=== PATIENT | male | born 1985 | race Caucasian/White ===

== ENCOUNTER 2023-12-10 23:47 | Emergency (ER) | payer MEDICAID, SELFPAY ==
[2023-12-10 23:54] VITALS: BP 142/98; PULSE 107; RESP 22; TEMP 36.4; O2SAT 98; BMI 27.8
[2023-12-11 00:05] LABS: Coronavirus 19, PCR Not Detected (NotDetected); Influenza A, PCR Not Detected (NotDetected); Influenza B, PCR Not Detected (NotDetected)
--- NOTE | 2023-12-11 00:14 | ED_ITS ---
Discharge Plan Disposition Patient Disposition: Home, Self-Care Prescriptions Prescriptions: New ondansetron HCl 4 mg tablet 4 mg PO Q8H PRN (Reason: nausea and vomiting) 5 Days Qty: 30 0RF benzonatate 100 mg capsule 100 mg PO Q6H PRN (Reason: cough) Qty: 30 0RF Referrals Follow up/Referrals: Provider,Referral, MD [Primary Care Provider] - See instructions Activity Restrictions/Add. Instructions Additional Instructions/Restrictions: Please take Tylenol ibuprofen and cough and cold medication [id number] as needed for symptoms. Take Zofran as needed for nausea and vomiting. Please take Tessalon Perles as needed for cough. Clinical Impressions Clinical Impression: Upper respiratory infection Qualifiers: URI type: unspecified URI Qualified Code(s): J06.9 - Acute upper respiratory infection, unspecified Cough Qualifiers: Cough type: acute Qualified Code(s): R05.1 - Acute cough Instructions Patient Instructions: DI for Acute Bronchitis Discharge ED Provider: Warner Boyer General Adult HPI General Chief complaint: Upper Respiratory Infection Stated complaint: Fever, Cough, Congestion Time Seen by Provider: 12/11/23 00:02 Mode of Arrival: Family Vehicle Source of Information: Patient Limitations: No Limitations Description of Symptoms (Recalled from ER Triage Doc. by RN): 38 YO PRESENTS WITH CC OF NON-PROD COUGH, FEVER SINCE LAST NIGHT, SORE THROAT; PATIENT DENIES EXPOSURE TO COVID/FLU/STREP; 1 EPISODE OF VOMITING, SOME MILD DIARRHEA History of Present Illness HPI narrative: 38-year-old male previously healthy presents with 1 day of upper respiratory infection. He reports cough, nonproductive, subjective fever and chills at home, for the last 24 hours. He smokes cigarettes. He denies any other past medical history. Denies significant shortness of breath or chest pain. Reports 1 episode of vomiting. Related Data Previous Rx's Medication Instructions Recorded benzonatate 100 mg capsule 100 mg PO Q6H PRN cough #30 caps 12/11/23 ondansetron HCl 4 mg tablet 4 mg PO Q8H PRN nausea and 12/11/23 vomiting 5 days #30 tabs Allergies Allergy/AdvReac Type Severity Reaction Status Date / Time No Known Allergies Allergy Verified 12/11/23 00:02 [facility] Disclaimer: The information contained in this section may have been updated after the patient was seen, as this information can be updated by other users. Social History Smoking Status: Unknown if ever smoked alcohol intake: never current occupational status: employed and other Travel in the last 8 weeks: None ROS Obtained: Yes All systems reviewed & no additional complaints except as documented Physical Exam General General appearance: alert and in no apparent distress Head Head exam: atraumatic and normocephalic Eye Eye exam: Present normal appearance, PERRL and EOMI ENT ENT exam: Present normal oropharynx and normal external ear exam Neck Neck exam: Present normal inspection and full ROM Chest Chest inspection: Present normal inspection and symmetric chest wall rise; Absent tenderness Respiratory Respiratory exam: Present normal lung sounds bilaterally; Absent respiratory distress Cardiovascular Cardiovascular exam: Present regular rate and normal rhythm Abdominal Exam Abdominal exam: Present soft; Absent distention, tenderness or guarding Extremities Exam Extremities exam: Present normal inspection; Absent edema or joint swelling Back Exam Back exam: Present normal inspection; Absent tenderness Neurological Exam Neurological exam: Present alert and oriented X3; Absent motor sensory deficit Psychiatric Psychiatric exam: Present normal affect and normal mood Skin Skin exam: Present warm, dry and normal color Lymphatic Lymphatic Findings: no adenopathy Medical Decision Making Medical Records Medical records reviewed: Yes I reviewed the patient's medical records. Smooth Inquiry Pt receiving controlled substance: No Smooth was queried for this patient: No Vital Signs: 12/10/23 23:54 12/11/23 00:44 Temperature 97.6 F 97.6 F Temperature Source Oral Oral Pulse Rate 94 H Pulse Rate [Right Brachial] 107 H Respiratory Rate 22 20 Blood Pressure 139/89 Blood Pressure [Right Arm] 142/98 H Blood Pressure Mean [Right Arm] 112 Blood Pressure Source [Right Arm] Automatic Cuff Blood Pressure Position [Right Arm] Sitting 02 Sat by Pulse Oximetry 98 Oxygen Delivery Method Room Air Lab Data Lab results reviewed: Yes I reviewed the patient's lab results. Lab Results 12/11/23 00:00: SARS-CoV-2 (PCR) Not detected, Influenza A Untype (PCR) Not detected, Influenza Type B (PCR) Not detected, Group A Strep Rapid Negative Orders (Tests/Meds): ORDERS Category Date Time Status Rapid PCR Covid and Flu A/B Stat Lab 12/11/23 00:00 Completed Rapid Strep Scrn Group A [Strep Scrn Group A (Rapid)] Lab 12/11/23 00:00 Completed Stat Strep Screen Confirmation Stat Micro 12/11/23 00:00 Received Medical Decision Narrative: 38-year-old male, history of cigarette smoking, presents with 24 hours of flulike symptoms. Has nonproductive cough. No chest pain or shortness of breath. Differential diagnosis includes not limited to URI, COVID, flu, pneumonia. Clear lungs bilaterally noted on physical exam. Oropharynx clear. Swabs sent. Negative for covid and flu. Patient discharged with prescription for Zofran for nausea and Tessalon Perles for cough. Given instructions regarding [id number] medications for symptom control. Procedures Risk/Benefits of Procedure(s) Were Explained: Yes Critical Care Critical Care Time Critical Care Time: No
[2023-12-11 00:34] LABS: Strep Scrn Group A (Rapid) Negative (Negative)
[2023-12-11 00:44] VITALS: BP 139/89; PULSE 94; RESP 20; TEMP 36.4; O2SAT 98
== END 2023-12-11 00:45 | disposition home or self-care (01) ==
PROVIDERS: Emergency Provider Emergency Medicine
DX: J06.9 Acute upper respiratory infection, unspecified (principal); R05.1 Acute cough; R50.9 Fever, unspecified; R11.10 Vomiting, unspecified; F17.210 Nicotine dependence, cigarettes, uncomplicated
CPT/HCPCS: 87430; 87636; 99283